=== PATIENT | female | born 1990 | race Caucasian/White ===

== ENCOUNTER → 2016-11-05 | Outpatient (CLI) | payer BC ==
--- NOTE | 2016-11-05 10:58 | US ---
EXAMINATION TYPE: US OB <=14 wks transvag DATE OF EXAM: 11/05/2016 9:21 AM COMPARISON: NONE CLINICAL HISTORY: Threatened O46.91. Vaginal bleeding x 2 days with pelvic pain/cramping EXAM PERFORMED: Transvaginal (TV) and Transabdominal (TA) EXAM MEASUREMENTS: GESTATIONAL AGE / DATING Physician Established: not established Dates by LMP: (7 weeks/4 days) EDC: 06/20/2017 Dates by First Scan: today Dates by Current Scan for: No IUP is seen MATERNAL ANATOMY Uterus: 8.0 x 4.5 x 4.1cm Endometrium: thickened with swirling motion to internal contents. Right Ovary: 2.5 x 2.3 x 2.2cm with appearance of involuting CL cyst of Left Ovary: 2.3 x 2.5 x 1.2cm Post CDS / Adnexa: wnl Presence of free fluid: no Presence of corpus luteal cyst: in right ovary = 1.3 x 1.7 x 0.9cm GESTATION / SURVEY No IUP or ectopic is seen. Date of LMP: 09/13/2016 Beta HcG (if available): NA IMPRESSION: 1. No current intrauterine . Correlate for spontaneous versus ectopic . Re lation with beta-hCG is recommended. 2. Thickened endometrial canal at 1.8 cm. 3. Right ovarian cyst
== END | disposition home or self-care (01) ==
LOC: RADUSWWP 08:33
PROVIDERS: ATTEND Obstetrics & Gynecology
DX: N83.201 Unspecified ovarian cyst, right side (principal); O20.0 Threatened abortion
CPT/HCPCS: 36415; 76801; 76817; 84702; 86850; 86900; 86901

== ENCOUNTER → 2016-11-08 | Outpatient (CLI) | payer BC | END | disposition home or self-care (01) | LOC: LABWHC1 09:37 | PROVIDERS: ATTEND Obstetrics & Gynecology | DX: O02.1 Missed abortion (principal) | CPT/HCPCS: 36415; 84702 ==

== ENCOUNTER → 2016-11-16 | Outpatient (CLI) | payer BC | END | disposition home or self-care (01) | LOC: LABWHC1 12:16 | PROVIDERS: ATTEND Obstetrics & Gynecology | DX: O02.1 Missed abortion (principal) | CPT/HCPCS: 36415; 84702 ==

== ENCOUNTER → 2016-12-17 | Outpatient (CLI) | payer BC | END | disposition home or self-care (01) | LOC: LABWHC1 16:02 | PROVIDERS: ATTEND Obstetrics & Gynecology | DX: N92.5 Other specified irregular menstruation (principal) | CPT/HCPCS: 36415; 84702 ==

== ENCOUNTER 2017-08-05 19:30 | Inpatient (IN) | payer OTHER ==
[~2017-08-05 19:30] MED LIST: BUPIVACAINE (PF) 0.25% 30 ML VIAL ONE; SODIUM CHLORIDE 0.9% 100 ML BAG ONE; fentaNYL (PF) 50 MCG/ML 5 ML AMP ONE
[2017-08-05] MEDS ORDERED: LIDOCAINE 1% (PF) 10 MG/ML (30 ML SDV) SQ PRN (20:10)
[2017-08-05] MEDS ORDERED: METHYLERGONOVINE 0.2 MG/ML 1 ML AMP IM PRN (20:10)
[2017-08-05] MEDS ORDERED: OXYTOCIN 10 UNIT/ML 1 ML VIAL IM PRN (20:10)
[2017-08-05] MEDS ORDERED: CARBOPROST TROMETHAMINE 250 MCG/ML 1 ML AMP IM PRN (20:10)
[2017-08-05] MEDS ORDERED: TERBUTALINE 1 MG/ML VIAL SQ PRN (20:10)
[2017-08-05] MEDS: LACTATED RINGERS 1,000 ML IV SCH (20:30)
[2017-08-05 20:42] VITALS: BMI 29.6
[2017-08-05 21:01] LABS: Basophils % (A) 0 %; Eosinophils % (A) 1 %; HCT 33.4 % (34.0-46.0); HGB 10.6 gm/dL (11.4-16.0); Hypochromasia Slight; Lymphocytes # (A) 1.8 k/uL (1.0-4.8); Lymphocytes % (A) 25 %; MCH 26.1 pg (25.0-35.0); MCHC 31.6 g/dL (31.0-37.0); MCV 82.3 fL (80.0-100.0); Mean Platelet Volume 7.7; Monocytes # (A) 0.4 k/uL (0-1.0); Monocytes % (A) 6 %; Neutrophils # (A) 4.6 k/uL (1.3-7.7); Neutrophils % (A) 65 %; Platelet Count 263 k/uL (150-450); RBC 4.06 m/uL (3.80-5.40); RDW 13.2 % (11.5-15.5); WBC 7.1 k/uL (3.8-10.6)
[2017-08-06] MEDS ORDERED: BUTORPHANOL 1 MG/ML 1 ML VIAL IV PRN (00:05)
[2017-08-06] MEDS: LACTATED RINGERS 1,000 ML IV SCH ×3 (03:28→09:51)
[2017-08-06] MEDS ORDERED: OXYTOCIN 20 UNITS/1000 ML NS 1,000 ML IV SCH (05:00)
--- NOTE | 2017-08-06 09:32 | P.HPOB ---
History of Present Illness H&P Date: 08/06/17 Chief Complaint: My water broke at home This is a 27-year-old white female 2 para 0010 EDC 08/14/2017 at 38-6/7 weeks' gestation who presented last evening with the complaint of spontaneous rupture of membranes at approximate 7 PM, clear fluid. has been essentially unremarkable, please see below. She denied uterine contractions upon presentation. Past medical history is significant for seasonal ALLERGIES and asthma. Current medications vitamins daily, Zofran as needed. ALLERGIES include Bactrim to which reports emesis, hydrocodone to which reports emesis. Past surgical history significant for spinal tap is a infant. Family history significant for hypertension, diabetes, hypothyroidism. Social history patient is , she has never been a smoker, she denies alcohol or drug use. Obstetric history is significant for negative group B strep cultures, blood type O positive, rubella status immune. VDRL testing, hepatitis B surface antigen, urine screen, Pap smear, gonorrhea Chlamydia cultures all negative. On exam this is a pleasant white female, 5 foot 1 inch, 257 pounds, blood pressure 128/80 on admission. Vital signs are stable and she has remained afebrile. The general physical exam is within normal limits. Cervix at time of this dictation is 10 cm, -2 station, 100% effaced, vertex presentation. heart rate is in the 140s with frequent accelerations consistent with reactive NST. Oxytocin augmentation has been started and epidural has been placed and is functioning well. Impression: 38-6/7 weeks intrauterine , active spontaneous labor at this time. Plan: Anticipate normal spontaneous vaginal delivery. Continue close maternal and surveillance. Review of Systems Negative except as in HPI Past Medical History Past Medical History: No Reported History, Asthma History of Any Multi-Drug Resistant Organisms: MRSA Date of last positivie culture/infection: 2007 MDRO Source:: Right arm, face, and hip/groin area Past Surgical History: No Surgical Hx Reported Past Anesthesia/Blood Transfusion Reactions: No Reported Reaction Past Psychological History: No Psychological Hx Reported Smoking Status: Never smoker Past Alcohol Use History: None Reported Past Drug Use History: None Reported - Past Family History Father Family Medical History: Thyroid Disorder Sister(s) Family Medical History: Diabetes Mellitus, Thyroid Disorder Medications and Allergies Home Medications Medication Instructions Recorded Confirmed Type Pnv No.95/Ferrous Fum/Folic AC 1 tab PO DAILY 08/05/17 08/06/17 History [ Multivitamin Tablet] Allergies Allergy/AdvReac Type Severity Reaction Status Date / Time hydrocodone AdvReac Nausea & Verified 08/05/17 19:45 Vomiting sulfamethoxazole AdvReac Nausea & Verified 08/05/17 19:45 [From Bactrim] Vomiting trimethoprim [From Bactrim] AdvReac Nausea & Verified 08/05/17 19:45 Vomiting Exam - Vital Signs Vital signs: Vital Signs Temp Pulse Resp BP Pulse Ox 08/05/17 20:10 97.4 F L 111 H 16 128/80 99 08/05/17 20:03 97.4 F L 111 H 16 128/80 Intake and Output 08/05/17 08/06/17 08/06/17 22:59 06:59 14:59 Other: # Voids 1 Weight 71.214 kg See dictation under HPI please Results Result Diagrams: 08/05/17 20:45 Abnormal Lab Results - Last 24 Hours (Table) 08/05/17 Range/Units 20:45 Hgb 10.6 L (11.4-16.0) gm/dL Hct 33.4 L (34.0-46.0) % Assessment and Plan Plan: Continue oxytocin augmentation. Continue close maternal and surveillance. Anticipate normal spontaneous vaginal delivery. Time with Patient: Less than 30
[2017-08-06] MEDS ORDERED: BENZOCAINE/MENTHOL SPRAY 1 GM/SPRAY AEROSOL TOPICAL PRN ×2 (10:20→10:27)
[2017-08-06] MEDS ORDERED: diphenhydrAMINE 50 MG/ML 1 ML VIAL IVP PRN ×2 (10:27)
[2017-08-06] MEDS ORDERED: HYDROCORTISONE 2.5% RECTAL CREAM 30 GM TUBE RECTAL PRN (10:27)
[2017-08-06] MEDS ORDERED: diphenhydrAMINE 50 MG CAP PO PRN (10:27)
[2017-08-06] MEDS ORDERED: ZOLPIDEM 5 MG TAB PO PRN (10:27)
[2017-08-06] MEDS ORDERED: Acetaminophen-Codeine 300-30mg TAB PO PRN (10:27)
[2017-08-06] MEDS ORDERED: diphenhydrAMINE ELIXIR 25 MG/10 ML CUP PO PRN (10:27)
[2017-08-06] MEDS ORDERED: WITCH HAZEL 1 EACH MED..PAD TOPICAL PRN (10:27)
[2017-08-06] MEDS ORDERED: diphenhydrAMINE 25 MG CAP PO PRN (10:27)
[2017-08-06] MEDS ORDERED: ACETAMINOPHEN TAB 325 MG TAB PO PRN (10:27)
[2017-08-06] MEDS ORDERED: IBUPROFEN 600 MG TAB PO PRN (10:27)
[2017-08-06] MEDS ORDERED: LANOLIN CREAM 5 GM TUBE TOPICAL PRN (10:27)
[2017-08-06] MEDS ORDERED: SIMETHICONE 80 MG CHEWABLE PO PRN (10:27)
--- NOTE | 2017-08-06 10:27 | P.PROBDLV ---
Vaginal Delivery Note - . Vaginal Delivery Note: This is a 27-year-old white female 2 para 0010 EDC 08/14/2017 at 38-6/7 weeks' gestation. Patient presented with spontaneous amniorrhexis which occurred at home, clear fluid. Oxytocin augmentation was started and epidural was placed per her request. [place]pee strep cultures are negative. Zaina status immune. Blood type O+. has been essentially unremarkable, please see my dictated history and physical for details. Patient progressed well through the first stage of labor and was judged to be completely dilated at 0905 hrs. The perineal body was prepped and draped in usual sterile fashion. With excellent maternal expulsive efforts gradual station was made. Ultimately the perineal body was prepped and draped in usual sterile fashion. Infant's head delivered occiput anterior and he restituted accordingly. There was a tight nuchal cord 1 that could not be reduced bimanual maneuvers, therefore was doubly clamped with hemostats and cut. The left or anterior shoulder was gently delivered from underneath the pubic symphysis. Patient was officially delivered of a liveborn male at 1006 hours. The placenta delivered spontaneously, it was inspected and noted to be intact with trivascular cord at 1009 hours. The uterus is then massaged. Inspection of the cervix, vagina, perineum, periurethral and perirectal areas revealed a small first-degree perineal laceration. This was easily reapproximated with a single [id number] suture of 3-0 Vicryl. Fundus is firm and in the midline , symmetric and 18 week size upon completion of delivery. Estimated blood loss 250 mL's. Infant's weight 3450 g or 7 pounds 9.7 ounces. All sponge needle and enhancement counts are correct at the end of the procedure. Patient and her are requesting circumcision further son.
[2017-08-07] MEDS: SENNOSIDES-DOCUSATE SODIUM 1 EACH TAB PO SCH ×2 (07:48→13:31)
[2017-08-07 09:29] VITALS: BP 119/72; PULSE 85; RESP 18; TEMP 98.1
--- NOTE | 2017-08-07 10:54 | P.DS ---
Providers Date of admission: 08/05/17 19:59 Expected date of discharge: 08/07/17 Attending physician: Radha Gonzales Primary care physician: Radha Gonzales [facility] Course: This is a 27 rolled white female 2 para 0010 EDC 08/14/2017 at 38-6/7 weeks' gestation. Patient presented from home with spontaneous amniorrhexis. is unremarkable, group B strep cultures negative, blood type O positive, rubella status immune. Please see my dictated history and physical for details. Oxytocin augmentation was started and titrated per hospital protocol. Epidural was placed per her request. She went on to deliver a liveborn male infant with scores of 9 and 9 at one and 5 minutes respectively. weighed 3450 g or 7 pounds 9.7 ounces. Estimated blood loss recorded at 250 mL's. Please see my dictated delivery note for details. This morning the patient and her baby are both doing well. Circumcision has been performed. Patient is voiding, ambulating, passing flatus without difficulty. Vital signs are stable and she is afebrile. Fundus is firm and in the midline, symmetric and 18 week size. Extremities are negative for edema. Breast-feeding is going well. There is minimal to moderate lochia rubra. Perineum is clean and dry. Patient is being discharged home today in very good condition. She will follow- up in the office with me in 6 weeks. She is reminded no intercourse, tampons or douching. She will follow-up with instrument maker apprentice as per recommendations. Ibuprofen products will be used as needed for pain, 200 mg pills, 3 every 6 hours as needed. Patient will call with any fevers shakes or chills, foul smelling or copious lochia, with the passage of large blood clots, with any pain not alleviated by [id number] products or indeed with any concerns. Patient Condition at Discharge: Good Plan - Discharge Summary New Discharge Prescriptions: No Action Pnv No.95/Ferrous Fum/Folic AC [ Multivitamin Tablet] 1 tab PO DAILY Discharge Medication List Pnv No.95/Ferrous Fum/Folic AC [ Multivitamin Tablet] 1 tab PO DAILY [History] Follow up Appointment(s)/Referral(s): Radha Gonzales MD [Primary Care Provider] - 6 Weeks Discharge Disposition: HOME SELF-CARE
[2017-08-07] MEDS ORDERED: BUPIVACAINE (PF) 0.25% 25 ML, fentaNYL (PF) 200 MCG in SODIUM CHLORIDE 0.9% 71 ML EPIDURAL ONE (12:04)
== END 2017-08-07 13:00 | disposition home or self-care (01) | DRG 775 ==
LOC: FBPOP 19:30 → 4FBP 19:59
PROVIDERS: ADMIT Obstetrics & Gynecology; ATTEND Obstetrics & Gynecology
PROC: 10E0XZZ Delivery of Products of Conception, External Approach (ICD-10-PCS; principal; 2017-08-06)
PROC: 0HQ9XZZ Repair Perineum Skin, External Approach (ICD-10-PCS; 2017-08-06)
PROC: 00HU33Z Insertion of Infusion Device into Spinal Canal, Percutaneous Approach (ICD-10-PCS; 2017-08-06)
PROC: 3E0R3NZ Introduction of Analgesics, Hypnotics, Sedatives into Spinal Canal, Percutaneous Approach (ICD-10-PCS; 2017-08-06)
DX: O69.1XX0 Labor and delivery complicated by cord around neck, with compression, not applicable or unspecified (principal); O70.0 First degree perineal laceration during delivery; Z83.3 Family history of diabetes mellitus; Z82.49 Family history of ischemic heart disease and other diseases of the circulatory system; Z88.6 Allergy status to analgesic agent; Z88.1 Allergy status to other antibiotic agents; Z86.14 Personal history of Methicillin resistant Staphylococcus aureus infection; Z88.2 Allergy status to sulfonamides; Z37.0 Single live birth; Z3A.38 38 weeks gestation of pregnancy
CPT/HCPCS: 59025; 84112; 85025; 88307; 99213

== ENCOUNTER 2020-03-04 06:03 | Inpatient (IN) | payer OTHER ==
[2020-03-04] MEDS ORDERED: CARBOPROST TROMETHAMINE 250 MCG/ML 1 ML AMP IM PRN (06:15)
[2020-03-04] MEDS ORDERED: METHYLERGONOVINE 0.2 MG/ML 1 ML AMP IM PRN (06:15)
[2020-03-04] MEDS ORDERED: OXYTOCIN 30 UNITS/500 ML NS 30 UNIT in SALINE 1 500ML.BAG IV SCH (06:15)
[2020-03-04] MEDS ORDERED: TERBUTALINE 1 MG/ML VIAL SQ PRN (06:15)
[2020-03-04] MEDS ORDERED: LIDOCAINE 0.5% (PF) 5 MG/ML (50 ML SDV) SQ PRN (06:15)
[2020-03-04] MEDS ORDERED: OXYTOCIN 10 UNIT/ML 1 ML VIAL IM PRN (06:15)
[2020-03-04] MEDS: LACTATED RINGERS 1,000 ML IV SCH ×2 (06:40→10:25)
[2020-03-04 07:57] LABS: Basophils % (A) 1 %; Eosinophils # (A) 0.1 k/uL (0-0.7); Eosinophils % (A) 1 %; HGB 10.4 gm/dL (11.4-16.0); Hypochromasia Slight; Lymphocytes # (A) 1.4 k/uL (1.0-4.8); Lymphocytes % (A) 23 %; MCH 24.7 pg (25.0-35.0); MCHC 31.5 g/dL (31.0-37.0); MCV 78.3 fL (80.0-100.0); Mean Platelet Volume 8.6; Monocytes # (A) 0.4 k/uL (0-1.0); Monocytes % (A) 6 %; Neutrophils # (A) 4.1 k/uL (1.3-7.7); Neutrophils % (A) 66 %; Platelet Count 205 k/uL (150-450); RBC 4.22 m/uL (3.80-5.40); RDW 14.8 % (11.5-15.5); WBC 6.2 k/uL (3.8-10.6)
--- NOTE | 2020-03-04 08:17 | P.HPOB ---
History of Present Illness H&P Date: 03/04/20 Chief Complaint: Here for elective induction of labor This is a 29-year-old white female 3 para 1011 EDC 03/09/2020 at 39-2/7 weeks' gestation. Patient presents today for elective induction of labor with favorable multiparous cervix. has been unremarkable, please see below. She denies vaginal bleeding or fluid leakage. Past medical history is significant for childhood asthma. Past surgical history a spinal tap as an infant. Current medications Zofran 4 mg as needed for nausea and vomiting, vitamin daily. ALLERGIES include Bactrim to which reports emesis, hydrocodone to which reports emesis, and seasonal ALLERGIES. Family history significant for hypertension, diabetes, hypothyroidism. Obstetric history significant for normal spontaneous vaginal delivery 2018, healthy male . Social history patient is , she denies alcohol or drug use. 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 history is significant for blood type O positive, rubella status immune. VDRL testing, urine culture, hepatitis B surface antigen, HIV testing, gonorrhea and chlamydia cultures, and group B strep cultures all negative. One- hour Glucola 88. On exam this is a pleasant white female who is 5 foot 1 inch, 166 pounds, blood pressure 119/76. Vital signs are stable and she is afebrile. Chest is clear in all thompson. Extremities reveal no edema. heart rate is consistent with reactive NST. Cervix is 3 cm dilated, 70-80% effaced, -2 station, vertex presentation. Artificial amniorrhexis reveals clear fluid. Impression: 39-2/7 weeks intrauterine , elective induction of labor. All signs reassuring. Plan: Oxytocin per hospital protocol. Close maternal and surveillance. Anticipate normal spontaneous vaginal delivery. Review of Systems Constitutional: Reports as per HPI Past Medical History Past Medical History: No Reported History, Asthma History of Any Multi-Drug Resistant Organisms: MRSA Date of last positivie culture/infection: 2007 MDRO Source:: Right arm, face, and hip/groin area Past Surgical History: No Surgical Hx Reported Past Anesthesia/Blood Transfusion Reactions: No Reported Reaction Past Psychological History: No Psychological Hx Reported Smoking Status: Never smoker Past Alcohol Use History: None Reported Past Drug Use History: None Reported - Past Family History Father Family Medical History: Thyroid Disorder Sister(s) Family Medical History: Diabetes Mellitus, Thyroid Disorder Medications and Allergies Home Medications Medication Instructions Recorded Confirmed Type Pnv No.95/Ferrous Fum/Folic AC 1 tab PO DAILY 08/05/17 03/04/20 History [ Multivitamin Tablet] Allergies Allergy/AdvReac Type Severity Reaction Status Date / Time hydrocodone AdvReac Nausea & Verified 03/04/20 06:14 Vomiting sulfamethoxazole AdvReac Nausea & Verified 03/04/20 06:14 [From Bactrim] Vomiting trimethoprim [From Bactrim] AdvReac Nausea & Verified 03/04/20 06:14 Vomiting Exam Vital Signs Temp Pulse Resp BP Pulse Ox 03/04/20 06:13 97.9 F 89 16 119/76 100 Intake and Output 03/03/20 03/04/20 03/04/20 22:59 06:59 14:59 Other: Weight 75.296 kg See dictation under HPI please Results Result Diagrams: 03/04/20 07:40 Abnormal Lab Results - Last 24 Hours (Table) 03/04/20 Range/Units 07:40 Hgb 10.4 L (11.4-16.0) gm/dL Hct 33.0 L (34.0-46.0) % MCV 78.3 L (80.0-100.0) fL MCH 24.7 L (25.0-35.0) pg Assessment and Plan Assessment: 39-2/7 weeks intrauterine , here for elective induction of labor. All signs reassuring. Plan: Continue close maternal and surveillance. Oxytocin per hospital protocol. Anticipate normal spontaneous vaginal delivery. Time with Patient: Less than 30
[2020-03-04] MEDS ORDERED: ROPIVACAINE 5MG/ML 20ML VIAL ONE (10:07)
[2020-03-04] MEDS ORDERED: SODIUM CHLORIDE 0.9% 100 ML BAG ONE (10:07)
[2020-03-04] MEDS ORDERED: fentaNYL (PF) 50 MCG/ML 5 ML AMP ONE (10:07)
[2020-03-04] MEDS ORDERED: IBUPROFEN 600 MG TAB PO PRN (13:46)
[2020-03-04] MEDS ORDERED: HYDROCORTISONE 2.5% RECTAL CREAM 30 GM TUBE RECTAL PRN (13:46)
[2020-03-04] MEDS ORDERED: diphenhydrAMINE 25 MG CAP PO PRN (13:46)
[2020-03-04] MEDS ORDERED: ACETAMINOPHEN TAB 325 MG TAB PO PRN (13:46)
[2020-03-04] MEDS ORDERED: diphenhydrAMINE 50 MG/ML 1 ML VIAL IVP PRN ×2 (13:46)
[2020-03-04] MEDS ORDERED: BENZOCAINE/MENTHOL SPRAY 1 GM/SPRAY AEROSOL TOPICAL PRN (13:46)
[2020-03-04] MEDS ORDERED: LANOLIN CREAM 5 GM TUBE TOPICAL PRN (13:46)
[2020-03-04] MEDS ORDERED: ZOLPIDEM 5 MG TAB PO PRN (13:46)
[2020-03-04] MEDS ORDERED: SIMETHICONE 80 MG CHEWABLE PO PRN (13:46)
[2020-03-04] MEDS ORDERED: diphenhydrAMINE 50 MG CAP PO PRN (13:46)
--- NOTE | 2020-03-04 13:46 | P.PROBDLV ---
Vaginal Delivery Note - . Vaginal Delivery Note: This is a 29-year-old white female 3 para 1011 EDC 03/09/2020 at 39-2/7 weeks' gestation. Patient presented for induction with favorable multiparous cervix. unremarkable, group B strep cultures negative, blood type O positive. Please see dictated history and physical for details. Artificial amniorrhexis revealed clear fluid. Oxytocin was started and titrated per hospital protocol. Epidural was requested and placed. heart tones were reassuring throughout the first and second stages of labor. Patient became completely dilated at 1312 hrs. and began the second stage of labor at that time. With excellent maternal expulsive efforts 's head delivered occiput anterior after the perineal body was prepped and draped in usual sterile fashion. There was no nuchal cord noted. The left or anterior shoulder was gently delivered from underneath the pubic symphysis at which time the oropharynx, nasopharynx, and external nares were all bulb suctioned on the perineal body. Patient delivered a liveborn male infant at 1327 hrs., scores 9 and 9 at one and 5 minutes respectively. He weighed 3410 g or 7 lbs. 8 oz. Placenta delivered spontaneously, it was inspected and noted to be intact with trivascular cord at 1330 hrs. Cord blood was sent to the lab area at this time inspection of the cervix, vagina, perineum, periurethral, and perirectal areas revealed a small second-degree perineal laceration in the midline. This was repaired in the usual fashion using 3-0 repeat suture. Excellent reapproximation was noted. Patient and her are allowed to begin the bonding experience in the LDR. They are requesting circumcision further infant son. Total estimated blood loss 250 mL's.
[2020-03-04] MEDS ORDERED: OXYTOCIN 20 UNITS/1000 ML NS 1,000 ML IV SCH (14:00)
[2020-03-04] MEDS ORDERED: SENNOSIDES-DOCUSATE SODIUM 1 EACH TAB PO SCH (20:00)
[2020-03-04 20:54] VITALS: TEMP 97.7
[2020-03-05 07:25] LABS: Basophils % (A) 0 %; Eosinophils # (A) 0.1 k/uL (0-0.7); Eosinophils % (A) 1 %; HCT 30.6 % (34.0-46.0); HGB 9.8 gm/dL (11.4-16.0); Hypochromasia Slight; Lymphocytes # (A) 1.5 k/uL (1.0-4.8); Lymphocytes % (A) 23 %; MCH 24.6 pg (25.0-35.0); MCHC 31.9 g/dL (31.0-37.0); MCV 77.1 fL (80.0-100.0); Mean Platelet Volume 8.3; Monocytes # (A) 0.4 k/uL (0-1.0); Monocytes % (A) 6 %; Neutrophils # (A) 4.4 k/uL (1.3-7.7); Neutrophils % (A) 67 %; Platelet Count 205 k/uL (150-450); RBC 3.97 m/uL (3.80-5.40); RDW 14.8 % (11.5-15.5); WBC 6.6 k/uL (3.8-10.6)
--- NOTE | 2020-03-05 07:47 | P.DS ---
Providers Date of admission: 03/04/20 06:03 Expected date of discharge: 03/05/20 Attending physician: Radha Gonzales Primary care physician: Stated None Hospital Course: This is a 29-year-old white female 3 para 1011 EDC 03/09/2020 at 39-2/7 weeks' gestation. Patient presented for induction with favorable multiparous cervix at time. Fetus active throughout the . Blood type O positive, rubella status immune. Please see dictated history and physical for details. Artificial amniorrhexis revealed clear fluid. Oxytocin was started and titrated. Epidural was placed. Patient went on to deliver a liveborn male with scores of 9 and 9 at one and 5 minutes respectively. He weighed 7 lbs. 8 oz. or 3410 g. Estimated blood loss 250 mL's. Small second- degree perineal laceration. Please see dictated delivery note for details. This morning the patient is doing well. She is voiding, ambulating and passing flatus without difficulty. Vital signs are stable and she is afebrile. Fundus is firm and midline, symmetric and 18 week size. Extremities are negative for edema. [place] is doing well, circumcision has been performed. Patient is judged to be in very good condition for discharge home. She will follow-up with me in the office in 6 weeks. I have reminded her no intercourse, tampons or douching. Multiple options for contraception have been discussed and we will review this further in the office. She will use [id number] Advil or Aleve, or Motrin as needed for pain. She will call with any fevers shakes or chills, foul smelling or copious lochia, with the passage of large blood clots, with any pain not alleviated by [id number] products, or indeed with any concerns. Assessment: Doing well day #1 Patient Condition at Discharge: Good Plan - Discharge Summary Discharge Rx Participant: No New Discharge Prescriptions: No Action Pnv No.95/Ferrous Fum/Folic AC [ Multivitamin Tablet] 1 tab PO DAILY Discharge Medication List Pnv No.95/Ferrous Fum/Folic AC [ Multivitamin Tablet] 1 tab PO DAILY [History] Follow up Appointment(s)/Referral(s): Radha Gonzales MD [STAFF PHYSICIAN] - 6 Weeks Discharge Disposition: HOME SELF-CARE
[2020-03-05 16:22] VITALS: BP 117/74; PULSE 101; RESP 15
== END 2020-03-05 14:30 | disposition home or self-care (01) | DRG 807 ==
LOC: 4FBP 06:03
PROVIDERS: ADMIT Obstetrics & Gynecology; ATTEND Obstetrics & Gynecology
PROC: 10907ZC Drainage of Amniotic Fluid, Therapeutic from Products of Conception, Via Natural or Artificial Opening (ICD-10-PCS; principal; 2020-03-04)
PROC: 3E033VJ Introduction of Other Hormone into Peripheral Vein, Percutaneous Approach (ICD-10-PCS; principal; 2020-03-04)
PROC: 10E0XZZ Delivery of Products of Conception, External Approach (ICD-10-PCS; principal; 2020-03-04)
PROC: 0KQM0ZZ Repair Perineum Muscle, Open Approach (ICD-10-PCS; principal; 2020-03-04)
PROC: 00HU33Z Insertion of Infusion Device into Spinal Canal, Percutaneous Approach (ICD-10-PCS; principal; 2020-03-04)
PROC: 3E0R3BZ Introduction of Anesthetic Agent into Spinal Canal, Percutaneous Approach (ICD-10-PCS; principal; 2020-03-04)
DX: O99.62 Diseases of the digestive system complicating childbirth (principal); Z37.0 Single live birth; K21.9 Gastro-esophageal reflux disease without esophagitis; O70.1 Second degree perineal laceration during delivery; Z3A.39 39 weeks gestation of pregnancy; Z87.09 Personal history of other diseases of the respiratory system; Z86.14 Personal history of Methicillin resistant Staphylococcus aureus infection; Z88.1 Allergy status to other antibiotic agents; Z88.5 Allergy status to narcotic agent; Z82.49 Family history of ischemic heart disease and other diseases of the circulatory system; Z83.3 Family history of diabetes mellitus; Z83.49 Family history of other endocrine, nutritional and metabolic diseases
CPT/HCPCS: 85025; 86850; 86900; 86901